=== PATIENT | female | born 1960 | race American Indian/Alaskan Native ===

== ENCOUNTER 2016-12-04 14:40 | Outpatient (CLI) | payer OTHER | END 2016-12-04 14:41 | disposition home or self-care (01) | LOC: LABHHL 14:40 | PROVIDERS: ATTEND Internal Medicine Gastroenterology | DX: R10.9 Unspecified abdominal pain (principal); R14.0 Abdominal distension (gaseous); R11.2 Nausea with vomiting, unspecified | CPT/HCPCS: 88305; 88342 ==